=== PATIENT | male | born 1980 | race Caucasian/White ===

== ENCOUNTER 2017-02-03 17:50 | Emergency (ER) | payer MEDICAID ==
--- NOTE | 2017-02-03 18:20 | EDPHY ---
H & P Stated Complaint: SI/MISSED APT AT [facility] DOESN'T HAVE MEDS Time Seen by Provider: 02/03/17 18:20 HPI/ROS: HPI: This is a 36-year-old male presents with Chief Complaint: Wanting to Location: psych Quality: Wants to Duration: Today Signs and Symptoms: No cough, no fever, no chest pain, no shortness of breath, no abdominal pain, no suicidal ideation, no homicidal ideation, no hallucinations Timing: Worse over the last few days Severity: Moderate Context: Patient reports that he has a history of depression and anxiety for which he takes Klonopin and Lexapro. He reports that he is out of these medications today. [facility] as he is tired of living on the streets for the last 6 years and not having a shower in over 1 year. He reports that he is severely depressed, keeps having bad thoughts of wanting to end his life but does not have a plan. He is very tearful and states that life is not worth living anymore. He does not have a family or friend support system. He does smoke marijuana but denies other recreational drug use. Although he does admit that at the [facility] 2 days ago he tested positive for methamphetamine. He does not remember if he has ever had inpatient psychiatric admission. He denies PTSD/schizophrenia. Modifying Factors: None Comment: ROS: see HPI Constitutional: No fever, no chills, no weight loss Eyes: No blurred vision Respiratory: No shortness of breath, no cough Cardiovascular: No chest pain Gastrointestinal: No nausea, no vomiting, no diarrhea Genitourinary: No dysuria Extremities: No myalgias Neurologic: No weakness, no numbness Skin: No rashes Hematologic: No bruising, no bleeding MEDICAL/SURGICAL/SOCIAL HISTORY: Medical history: Depression, anxiety Surgical history: Denies Social history: Homeless CONSTITUTIONAL: Malodorous adult white male, who constantly rubs his head and picks at his skin, awake and alert, no obvious distress HEENT: Atraumatic and normocephalic, PERRL, EOMI. Tympanic membranes clear. Oropharynx clear, no exudate and moist pink mucosa. Airway patent. No lymphadenopathy. No meningismus. Cardiovascular: Normal S1/S2, regular rate, regular rhythm, without murmur rub or gallop. PULMONARY/CHEST: Symmetrical and nontender. Clear to auscultation bilaterally. Good air movement. No accessory muscle usage. ABDOMEN: Soft, nondistended, nontender, no rebound, no guarding, no peritoneal signs, no masses or organomegaly. No CVAT. EXTREMITIES: 2/2 pulses, strength 5/5, no deformities, no clubbing, no cyanosis or edema. NEUROLOGICAL: no focal neuro deficits. GCS 15. SKIN: Warm and dry, covered in tattoos on torso, scalp, neck and arms. no erythema. no rash. Good capillary refill. PSYCH: Poor eye contact, no flight of ideas, somewhat disorganized thought process, poor insight and judgment, no auditory and visual command hallucinations, positive suicidal ideation but no plan, no homicidal ideation, no paranoia Source: Patient, RN/MD Exam Limitations: No limitations - Personal History Current Tetanus/Diphtheria Vaccine: Unsure - Medical/Surgical History Hx Asthma: No Hx Chronic Respiratory Disease: No Hx Diabetes: No Hx Cardiac Disease: No Hx Renal Disease: No Hx Cirrhosis: No Hx Alcoholism: No Hx HIV/AIDS: No Hx Splenectomy or Spleen Trauma: No Other PMH: PMH: ANXIETY,DEPRESSION. DENIES PSH - Social History Smoking Status: Heavy smoker Constitutional: Initial Vital Signs Temperature (C) 36.5 C 02/03/17 17:54 Heart Rate 93 02/03/17 17:54 Respiratory Rate 16 02/03/17 17:54 Blood Pressure 138/89 H 02/03/17 17:54 O2 Sat (%) 99 02/03/17 17:54 O2 Delivery Mode Room Air Allergies/Adverse Reactions: haloperidol [From Haldol] Allergy (Verified 02/03/17 17:54) haloperidol lactate [From Haldol] Allergy (Verified 02/03/17 17:54) Home Medications: Medication Instructions Recorded Klonopin Unk Dose 09/13/13 Escitalopram Oxalate [Lexapro] 20 mg PO DAILY 14 Days tablet 10/16/15 Lexapro 10/16/15 clonazePAM [Klonopin (*)] 0.5 mg PO BID #20 tab 10/16/15 Medical Decision Making ED Course/Re-evaluation: Labs, UDS ordered 1814: M1 placed for suicidal ideations Patient was extremely anxious and asked for something to calm down. P.o. Ativan 1 mg given 1910: Labs in UDS reviewed and medically clear for mental health evaluation 2015: Advised by mental health that patient tested around 1400 positive for methamphetamine and will not re-evaluate patient until Friday at 0200 End of Shift. Signed out to Dr. Church pending mental health evaluation. Re- evaluated patient and he is sleeping calmly. Differential Diagnosis: Differential diagnosis includes but is not limited to severe major depression, suicidal ideation, psychosocial stressful factors. - Data Points Laboratory Results: Laboratory Results 02/03/17 18:11 02/03/17 18:11 02/03/17 02/03/17 02/03/17 18:23 18:11 18:11 WBC 10.03 10^3/uL H 10^3/uL (3.80-9.50) RBC 5.14 10^6/uL 10^6/uL (4.40-6.38) Hgb 15.6 g/dL g/dL (13.7-17.5) Hct 45.9 % % (40.0-51.0) MCV 89.3 fL fL (81.5-99.8) MCH 30.4 pg pg (27.9-34.1) MCHC 34.0 g/dL g/dL (32.4-36.7) RDW 12.3 % % (11.5-15.2) Plt Count 342 10^3/uL 10^3/uL (150-400) MPV 9.5 fL fL (8.7-11.7) Neut % (Auto) 46.9 % % (39.3-74.2) Lymph % (Auto) 42.2 % % (15.0-45.0) [place] % (Auto) 6.0 % % (4.5-13.0) Eos % (Auto) 3.9 % % (0.6-7.6) Baso % (Auto) 0.8 % % (0.3-1.7) Nucleat RBC Rel Count 0.0 % % (0.0-0.2) Absolute Neuts (auto) 4.71 10^3/uL 10^3/uL (1.70-6.50) Absolute Lymphs (auto) 4.23 10^3/uL H 10^3/uL (1.00-3.00) Absolute Monos (auto) 0.60 10^3/uL 10^3/uL (0.30-0.80) Absolute Eos (auto) 0.39 10^3/uL 10^3/uL (0.03-0.40) Absolute Basos (auto) 0.08 10^3/uL 10^3/uL (0.02-0.10) Absolute Nucleated RBC 0.00 10^3/uL 10^3/uL (0-0.01) Immature Gran % 0.2 % % (0.0-1.1) Immature Gran # 0.02 10^3/uL 10^3/uL (0.00-0.10) Sodium 140 mEq/L mEq/L (134-144) Potassium 4.4 mEq/L mEq/L (3.5-5.2) Chloride 99 mEq/L mEq/L (97-110) Carbon Dioxide 28 mEq/l mEq/l (22-31) Anion Gap 13 mEq/L mEq/L (8-16) BUN 14 mg/dL mg/dL (7-23) Creatinine 0.9 mg/dL mg/dL (0.7-1.3) Estimated GFR > 60 Glucose 89 mg/dL mg/dL (70-100) Calcium 9.4 mg/dL mg/dL (8.5-10.4) Urine Opiates Screen NEGATIVE (NEGATIVE) Urine Barbiturates NEGATIVE (NEGATIVE) Ur Phencyclidine Scrn NEGATIVE (NEGATIVE) Ur Amphetamine Screen NEGATIVE (NEGATIVE) U Benzodiazepines Scrn NEGATIVE (NEGATIVE) Urine Cocaine Screen NEGATIVE (NEGATIVE) U Marijuana (THC) Screen NEGATIVE (NEGATIVE) Ethyl Alcohol < 10 mg/dL mg/dL (0-10) Medications Given: Discontinued Medications Ibuprofen (Motrin) 600 mg PO EDNOW ONE Stop: 02/03/17 19:52 Last Admin: 02/03/17 20:07 Dose: 600 mg Lorazepam (Ativan) 1 mg PO EDNOW ONE Stop: 02/03/17 18:42 Last Admin: 02/03/17 18:44 Dose: 1 mg Departure - Departure Clinical Impression: Suicidal ideations, Severe major depression without psychotic features, Generalized anxiety disorder Referrals: NONE *PRIMARY CARE P,. [Primary Care Provider] - As per Instructions
[2017-02-03 18:31] LABS: PLATELET COUNT 342 10^3/uL (150-400)
[2017-02-03] MEDS ORDERED: LORazepam 1 MG TAB PO ONE (18:41)
[2017-02-03] MEDS ORDERED: IBUPROFEN 600 MG TAB PO ONE (19:51)
[2017-02-04] MEDS ORDERED: LORazepam 1 MG TAB PO ONE (08:01)
[2017-02-04 08:19] VITALS: BP 133/86; PULSE 73; RESP 16; TEMP 98.2; O2SAT 94
== END 2017-02-04 08:58 | disposition home or self-care (01) ==
LOC: EEVIPCON 17:50
DX: R45.851 Suicidal ideations (principal); F32.2 Major depressive disorder, single episode, severe without psychotic features; F41.9 Anxiety disorder, unspecified; F17.200 Nicotine dependence, unspecified, uncomplicated
CPT/HCPCS: 80305; G0480

== ENCOUNTER 2017-02-05 11:13 | Emergency (ER) | payer MEDICAID ==
[2017-02-05 11:17] VITALS: RESP 20; O2SAT 97
--- NOTE | 2017-02-05 11:31 | EDPHY ---
H & P Stated Complaint: out of klonopin, not feeling well, SI Time Seen by Provider: 02/05/17 11:31 HPI/ROS: HPI: This is a 36-year-old male presents with Chief Complaint: Out of clonazepam Location: psych Quality: Out of clonazepam Duration: 2 days Signs and Symptoms: No cough, no fever, no chest pain, no shortness of breath, no abdominal pain, no suicidal ideation, no homicidal ideation, no hallucinations Timing: Worse over the last few days Severity: Moderate Context: Patient reports that he has a history of depression and anxiety for which he takes Klonopin and Lexapro. He reports that he is out of his Klonopin approximately 2-3 days. Patient is known to me as he was was evaluated in this ER 2 days ago for passive suicidal ideations that he was evaluated by psych and it was determined that he was safe to be discharged home with outpatient behavioral health follow-up. Patient denies actually wanting to harm himself and does not have a plan. He just feels really anxious with his thoughts racing as he has not had his Klonopin 0.5 mg twice daily in the last 2-3 days. Patient has an appointment in March with his psychiatrist. And he is due for Klonopin refill in 2 days. Modifying Factors: None ROS: see HPI Constitutional: No fever, no chills, no weight loss Eyes: No blurred vision Respiratory: No shortness of breath, no cough Cardiovascular: No chest pain Gastrointestinal: No nausea, no vomiting, no diarrhea Genitourinary: No dysuria Extremities: No myalgias Neurologic: No weakness, no numbness Skin: No rashes Hematologic: No bruising, no bleeding MEDICAL/SURGICAL/SOCIAL HISTORY: Medical history: Generally healthy. Does not take any regular medications. Surgical history: Denies Social history: Homeless CONSTITUTIONAL: Malodorous with body odor, nontoxic-appearing white male, awake and alert, no obvious distress HEENT: Atraumatic and normocephalic, PERRL, EOMI. Tympanic membranes clear. Oropharynx clear, no exudate and moist pink mucosa. Airway patent. No lymphadenopathy. No meningismus. Cardiovascular: Normal S1/S2, mild tachycardia, regular rhythm, without murmur rub or gallop. PULMONARY/CHEST: Symmetrical and nontender. Clear to auscultation bilaterally. Good air movement. No accessory muscle usage. ABDOMEN: Soft, nondistended, nontender, no rebound, no guarding, no peritoneal signs, no masses or organomegaly. No CVAT. EXTREMITIES: 2/2 pulses, strength 5/5, no deformities, no clubbing, no cyanosis or edema. NEUROLOGICAL: no focal neuro deficits. GCS 15. SKIN: Warm and dry, covered in tattoos, no erythema. no rash. Good capillary refill. PSYCH: Poor eye contact, no flight of ideas, someone disorganized thought process, relatively good insight and judgment, no auditory and visual command hallucinations, no suicidal ideation with a plan, no homicidal ideation, no paranoid Source: Patient Exam Limitations: No limitations - Personal History Current Tetanus/Diphtheria Vaccine: Unsure Current Tetanus Diphtheria and Acellular Pertussis (TDAP): Unsure - Medical/Surgical History Hx Asthma: No Hx Chronic Respiratory Disease: No Hx Diabetes: No Hx Cardiac Disease: No Hx Renal Disease: No Hx Cirrhosis: No Hx Alcoholism: No Hx HIV/AIDS: No Hx Splenectomy or Spleen Trauma: No Other PMH: PMH: ANXIETY,DEPRESSION. DENIES PSH - Social History Smoking Status: Heavy smoker Constitutional: Initial Vital Signs Temperature (C) 36.8 C 02/05/17 11:15 Heart Rate 107 H 02/05/17 11:15 Respiratory Rate 20 02/05/17 11:15 Blood Pressure 138/109 H 02/05/17 11:15 O2 Sat (%) 97 02/05/17 11:15 O2 Delivery Mode Room Air Allergies/Adverse Reactions: haloperidol [From Haldol] Allergy (Verified 02/05/17 11:14) haloperidol lactate [From Haldol] Allergy (Verified 02/05/17 11:14) Home Medications: Medication Instructions Recorded Klonopin Unk Dose 09/13/13 Escitalopram Oxalate [Lexapro] 20 mg PO DAILY 14 Days tablet 10/16/15 Lexapro 10/16/15 clonazePAM [Klonopin (*)] 0.5 mg PO BID #20 tab 10/16/15 clonazePAM [Klonopin (*)] 0.5 mg PO BID #4 tab 02/05/17 Medical Decision Making ED Course/Re-evaluation: Patient given Klonopin 1 mg He does not meet M1 criteria at this time as no SI, HI, psychosis, hallucinations. Reassessed patient at 1:24 p.m. and reports much more calm and no longer anxious. Reviewed labs and grossly unremarkable UDS is positive for benzodiazepines, marijuana Patient can fill his Klonopin prescription Ryley morning. Will give him #4 Tablets for the interim. Differential Diagnosis: Altered mental status including but not limited to hypoglycemia, infectious process, electrolyte abnormality, head injury and intoxicants. - Data Points Laboratory Results: Laboratory Results 02/05/17 11:30 02/05/17 11:02/05/17 02/05/17 02/05/17 11:30 11: 11:30 WBC 9.04 10^3/uL 10^3/uL (3.80-9.50) RBC 4.99 10^6/uL 10^6/uL (4.40-6.38) Hgb 15.5 g/dL g/dL (13.7-17.5) Hct 43.5 % % (40.0-51.0) MCV 87.2 fL fL (81.5-99.8) MCH 31.1 pg pg (27.9-34.1) MCHC 35.6 g/dL g/dL (32.4-36.7) RDW 12.2 % % (11.5-15.2) Plt Count 306 10^3/uL 10^3/uL (150-400) MPV 9.7 fL fL (8.7-11.7) Neut % (Auto) 53.5 % % (39.3-74.2) Lymph % (Auto) 38.2 % % (15.0-45.0) [place] % (Auto) 5.4 % % (4.5-13.0) Eos % (Auto) 1.9 % % (0.6-7.6) Baso % (Auto) 0.8 % % (0.3-1.7) Nucleat RBC Rel Count 0.0 % % (0.0-0.2) Absolute Neuts (auto) 4.84 10^3/uL 10^3/uL (1.70-6.50) Absolute Lymphs (auto) 3.45 10^3/uL H 10^3/uL (1.00-3.00) Absolute Monos (auto) 0.49 10^3/uL 10^3/uL (0.30-0.80) Absolute Eos (auto) 0.17 10^3/uL 10^3/uL (0.03-0.40) Absolute Basos (auto) 0.07 10^3/uL 10^3/uL (0.02-0.10) Absolute Nucleated RBC 0.00 10^3/uL 10^3/uL (0-0.01) Immature Gran % 0.2 % % (0.0-1.1) Immature Gran # 0.02 10^3/uL 10^3/uL (0.00-0.10) Sodium 140 mEq/L mEq/L (134-144) Potassium 4.1 mEq/L mEq/L (3.5-5.2) Chloride 102 mEq/L mEq/L (97-110) Carbon Dioxide 23 mEq/l mEq/l (22-31) Anion Gap 15 mEq/L mEq/L (8-16) BUN 12 mg/dL mg/dL (7-23) Creatinine 0.8 mg/dL mg/dL (0.7-1.3) Estimated GFR > 60 Glucose 136 mg/dL H mg/dL (70-100) Calcium 9.7 mg/dL mg/dL (8.5-10.4) Urine Opiates Screen NEGATIVE (NEGATIVE) Urine Barbiturates NEGATIVE (NEGATIVE) Ur Phencyclidine Scrn NEGATIVE (NEGATIVE) Ur Amphetamine Screen NEGATIVE (NEGATIVE) U Benzodiazepines Scrn NON-NEGATIVE H (NEGATIVE) Urine Cocaine Screen NEGATIVE (NEGATIVE) U Marijuana (THC) Screen NON-NEGATIVE H (NEGATIVE) Ethyl Alcohol < 10 mg/dL mg/dL (0-10) Medications Given: Discontinued Medications Clonazepam (Klonopin) 1 mg PO EDNOW ONE Stop: 02/05/17 11:51 Last Admin: 02/05/17 12:07 Dose: 1 mg Departure - Departure Disposition: Home, Routine, Self-Care Clinical Impression: Has run out of medications Anxiety disorder Qualifiers: Anxiety disorder type: generalized anxiety disorder Qualified Code(s): F41.1 - Generalized anxiety disorder Condition: Good Instructions: Generalized Anxiety Disorder (ED) Referrals: [facility],. [Clinic] - As per Instructions Prescriptions: clonazePAM [Klonopin (*)] 0.5 mg PO BID #4 tab
[2017-02-05] MEDS ORDERED: clonazePAM 1 MG TAB PO ONE (11:50)
[2017-02-05 11:51] LABS: % IMMATURE GRANULYOCYTES 0.2 % (0.0-1.1); ABSOLUTE IMMATURE GRANULOCYTES 0.02 10^3/uL (0.00-0.10); ADD DIFF? NO; ADD MORPH? NO; ADD SCAN? NO; ATYPICAL LYMPHOCYTE FLAG 10 (0-99); FRAGMENT RBC FLAG 0 (0-99); HEMATOCRIT 43.5 % (40.0-51.0); HEMOGLOBIN 15.5 g/dL (13.7-17.5); LEFT SHIFT FLG 0 (0-99); LIPEMIA HEMOLYSIS FLAG 90 (0-99); MEAN CELL HEMOGLOBIN 31.1 pg (27.9-34.1); MEAN CELL HEMOGLOBIN CONCENTR. 35.6 g/dL (32.4-36.7); MEAN CELL VOLUME 87.2 fL (81.5-99.8); MEAN PLATELET VOLUME 9.7 fL (8.7-11.7); PLATELET CLUMPS FLAG 10 (0-99); PLATELET COUNT 306 10^3/uL (150-400); RED BLOOD CELL COUNT 4.99 10^6/uL (4.40-6.38); RED CELL DISTRIBUTION WIDTH 12.2 % (11.5-15.2)
[2017-02-05 12:07] LABS: ANION GAP 15 mEq/L (8-16); CALCIUM 9.7 mg/dL (8.5-10.4); CARBON DIOXIDE 23 mEq/l (22-31); CHLORIDE 102 mEq/L (97-110); CREATININE 0.8 mg/dL (0.7-1.3); ETHANOL SERUM < 10 mg/dL (0-10); GLOMERULAR FILTRATION RATE > 60; GLUCOSE 136 mg/dL (70-100); POTASSIUM 4.1 mEq/L (3.5-5.2); SODIUM 140 mEq/L (134-144)
[2017-02-05 13:45] VITALS: BP 155/74; PULSE 88; TEMP 98.4
== END 2017-02-05 13:45 | disposition home or self-care (01) ==
DX: F41.1 Generalized anxiety disorder (principal); F17.200 Nicotine dependence, unspecified, uncomplicated
CPT/HCPCS: 80305; G0480

== ENCOUNTER 2017-03-26 11:16 | Emergency (ER) | payer MEDICAID ==
[2017-03-26 11:47] LABS: PLATELET COUNT 351 10^3/uL (150-400)
--- NOTE | 2017-03-26 16:42 | EDPHY ---
H & P Stated Complaint: SI - Personal History Current Tetanus/Diphtheria Vaccine: Unsure Current Tetanus Diphtheria and Acellular Pertussis (TDAP): Unsure - Medical/Surgical History Hx Asthma: No Hx Chronic Respiratory Disease: No Hx Diabetes: No Hx Cardiac Disease: No Hx Renal Disease: No Hx Cirrhosis: No Hx Alcoholism: No Hx HIV/AIDS: No Hx Splenectomy or Spleen Trauma: No Other PMH: PMH: ANXIETY,DEPRESSION, meth use. DENIES PSH - Social History Smoking Status: Heavy smoker HPI/ROS: Chief complaint: Suicidal ideation History of present illness: This is a 36-year-old male who presents to the emergency department for suicidal ideation. Patient with a history of depression. It is been worsening lately. He states he has been thinking of killing himself. He tells me "I do not want to live anymore." He denies homicidal ideation. He denies illness or injury. Review of systems: A 10 point review of systems was obtained and other than described above was negative (Jameson Candelario) Patient signed over to Dr. Marino at 7am (Leo Church) - Physical Exam Exam: General Appearance: Alert, crying. Eyes: Pupils equal and round no pallor or injection. ENT, Mouth: Mucous membranes moist. Respiratory: There are no retractions, lungs are clear to auscultation. Cardiovascular: Regular rate and rhythm. Gastrointestinal: Abdomen is soft and non tender, no masses, bowel sounds normal. Neurological: Alert and oriented x4. Strength and sensation intact and symmetric. Skin: Warm and dry, no rashes. Musculoskeletal: Neck is supple non tender. Extremities are symmetrical, full range of motion. Psychiatric: Patient is sad, crying. No agitation. (Jameson Candelario) Constitutional: Initial Vital Signs Temperature (C) 36.8 C 03/26/17 11:23 Heart Rate 89 03/26/17 11:23 Respiratory Rate 16 03/26/17 11:23 Blood Pressure 143/93 H 03/26/17 11:23 O2 Sat (%) 97 03/26/17 11:23 O2 Delivery Mode Room Air Allergies/Adverse Reactions: haloperidol [From Haldol] Allergy (Verified 03/26/17 11:21) haloperidol lactate [From Haldol] Allergy (Verified 03/26/17 11:21) Home Medications: Medication Instructions Recorded Lexapro 10/16/15 clonazePAM [Klonopin (*)] 0.5 mg PO BID #20 tab 10/16/15 Medical Decision Making ED Course/Re-evaluation: Patient seen under the supervision of my secondary supervising physician Dr. Marc Angel. Patient presents to the emergency department with suicidal ideation. He is medically evaluated and cleared for psychiatric evaluation. The psychiatric team has seen him and are working on an acute stabilization crisis unit placement. Care of patient turned over to Dr. Francis Puentes at end of shift. (Jameson Candelario) Patient remained stable on my shift. Care was turned over to Dr. Church. ( Francis Puentes) Differential Diagnosis: Included but not limited to substance abuse, anxiety, depression, bipolar (Jameson Candelario) Other Provider: 10:20 a.m. accepted at [facility] in [place] at [facility] [address] Mccollum. ( Santino Marino) - Data Points Laboratory Results: Laboratory Results 03/26/17 11:41 03/26/17 11:35 Medications Given: Discontinued Medications Clonazepam (Klonopin) 1 mg PO EDNOW ONE Stop: 03/26/17 16:59 Last Admin: 03/26/17 17:06 Dose: 1 mg Clonazepam (Klonopin) 1 mg PO EDNOW ONE Stop: 03/27/17 07:10 Last Admin: 03/27/17 07:43 Dose: 1 mg Escitalopram Oxalate (Lexapro) 30 mg PO EDNOW ONE Stop: 03/26/17 16:57 Last Admin: 03/26/17 17:06 Dose: 30 mg Escitalopram Oxalate (Lexapro) 30 mg PO EDNOW ONE Stop: 03/27/17 07:09 Last Admin: 03/27/17 08:04 Dose: 30 mg Departure - Departure Disposition: Other Psych, Not [place] Clinical Impression: Suicidal ideation Condition: Fair Referrals: NONE *PRIMARY CARE P,. [Primary Care Provider] - As per Instructions
[2017-03-26] MEDS ORDERED: ESCITALOPRAM OXALATE 10 MG TAB PO ONE (16:56)
[2017-03-26] MEDS ORDERED: clonazePAM 1 MG TAB PO ONE (16:58)
[2017-03-27] MEDS ORDERED: ESCITALOPRAM OXALATE 10 MG TAB PO ONE (07:08)
[2017-03-27] MEDS ORDERED: clonazePAM 1 MG TAB PO ONE (07:09)
[2017-03-27 12:10] VITALS: BP 124/67; PULSE 71; RESP 18; TEMP 97.7; O2SAT 95
== END 2017-03-27 12:10 ==
DX: R45.851 Suicidal ideations (principal); F17.200 Nicotine dependence, unspecified, uncomplicated
CPT/HCPCS: 80305; G0480

== ENCOUNTER 2017-04-10 11:35 | Emergency (ER) | payer MEDICAID ==
[2017-04-10 11:41] VITALS: TEMP 97.9
--- NOTE | 2017-04-10 12:34 | EDPHY ---
H & P Time Seen by Provider: 04/10/17 12:21 HPI/ROS: Chief complaint. Wants a mental health appointment HPI. 36-year-old male with history of anxiety depression and meth use and was seen 1 week ago for suicide ideation. He was admitted to a crisis stabilization unit. They changed his antidepressant. He had an appointment for follow up with mental health but was arrested for sleeping outside and spent the last 2 nights in [facility] and missed his appointment. He denies suicide and homicide ideation. Denies recent drug use as he has been in [facility] last 2 days. ROS Constitutional. no fever/chills, no weakness Eyes. no problems with vision ENT. no sore throat, no nasal drainage Cardiovascular. no chest pain Respiratory. no shortness of breath, no cough Abdominal. no abdominal pain, no nausea/vomiting, no diarrhea . no problems urinating MS. no calf pain/swelling, no neck/back pain, no joint pain Skin. no rash Lymph. no swollen glands Neuro. Depression Past Medical/Surgical History: Anxiety, depression, meth use Social History: Single, daily smoker, no alcohol Smoking Status: Heavy smoker Physical Exam: General Appearance: Alert well-developed male slightly disorganized but otherwise no distress. Vital signs are stable Eyes: Pupils equal and round no pallor or injection. ENT, Mouth: Mucous membranes are moist. Respiratory: There are no retractions, lungs are clear to auscultation. Cardiovascular: Regular rate and rhythm. Gastrointestinal: Abdomen is soft and nontender, no masses, bowel sounds normal. Neurological: Awake and alert, sensory and motor exams grossly normal. Skin: Warm and dry, no rashes. Musculoskeletal: Neck is supple nontender. Extremities symmetrical, full range of motion. Psychiatric: Patient is oriented X 3, there is no agitation. Constitutional: Initial Vital Signs Temperature (C) 36.6 C 04/10/17 11:39 Heart Rate 92 04/10/17 11:39 Respiratory Rate 17 04/10/17 11:39 Blood Pressure 129/96 H 04/10/17 11:39 O2 Sat (%) 96 04/10/17 11:39 O2 Delivery Mode Room Air Allergies/Adverse Reactions: haloperidol [From Haldol] Allergy (Verified 04/10/17 11:38) haloperidol lactate [From Haldol] Allergy (Verified 04/10/17 11:38) Home Medications: Medication Instructions Recorded Lexapro 07/18/16 clonazePAM [Klonopin (*)] 0.5 mg PO BID #20 tab 10/16/15 Medical Decision Making ED Course/Re-evaluation: Re-evaluation 2:30 p.m.. Patient is stable. He has talked with mental health and has a follow-up appointment. He is comfortable with this. He does not wish to stay any longer in the emergency department. He continues to deny suicidal or homicidal ideation Differential Diagnosis: The patient has ongoing mental health issues. He missed his follow-up appointment with mental health after being arrested and spending 2 nights in [facility]. He was here for requesting a mental health follow-up appointment. This has been performed. He is safe for discharge Departure - Departure Disposition: Home, Routine, Self-Care Clinical Impression: Severe major depression Condition: Good Instructions: Depression (ED) Additional Instructions: Continue regular medications. Keep follow-up appointment with mental health. Return for thoughts of harming herself or others. Referrals: NONE *PRIMARY CARE P,. [Primary Care Provider] - As per Instructions [facility] [Outside] - As per Instructions
[2017-04-10 14:46] VITALS: BP 158/92; PULSE 87; RESP 16; O2SAT 95
== END 2017-04-10 14:45 | disposition home or self-care (01) ==
DX: F32.9 Major depressive disorder, single episode, unspecified (principal); F17.200 Nicotine dependence, unspecified, uncomplicated

== ENCOUNTER 2018-05-06 09:11 | Emergency (ER) | payer MEDICAID ==
[2018-05-06 09:16] VITALS: BP 148/92
--- NOTE | 2018-05-06 09:29 | EDPHY ---
H & P Stated Complaint: lost his clonazepam Time Seen by Provider: 05/06/18 09:26 HPI/ROS: HPI: This is a 37-year-old male who presents with Chief Complaint: Lost his Klonopin Location: psych Quality: Lost his Klonopin Duration: 1 week Signs and Symptoms: no auditory hallucinations, no visual hallucinations, no suicidal ideation with a plan, no homicidal ideation, no paranoia Timing: Acute on chronic Severity: Mild Context: Patient has a history of anxiety, depression, followed by Dr. Patel, at [facility] presents with request of refill of his Klonopin as he has "lost it and hasn't had it for 1 week." Patient reports that he feels jittery and anxious. He reports that he called the nurse but they will "not talk to me." He has an appointment on the with [facility] to get his medications filled. Denies suicidal ideation, homicidal ideation. Modifying Factors: None Comment: ROS: A comprehensive 10 system review of systems is otherwise negative aside from elements mentioned in the history of present illness. MEDICAL/SURGICAL/SOCIAL HISTORY: Medical history: ANXIETY,DEPRESSION, meth use Surgical history: Denies Social history: Homeless. Family history noncontributory. CONSTITUTIONAL: Untidy, tearful, adult white male, awake and alert, no obvious distress HEENT: Atraumatic and normocephalic, PERRL, EOMI. Nares patent; no rhinorrhea; no nasal mucosal edema. Tympanic membranes clear. Oropharynx clear, no exudate and moist pink mucosa. Airway patent. No lymphadenopathy. No meningismus. Cardiovascular: Normal S1/S2, mild tachycardia, regular rhythm, without murmur rub or gallop. PULMONARY/CHEST: Symmetrical and nontender. Clear to auscultation bilaterally. Good air movement. No accessory muscle usage. ABDOMEN: Soft, nondistended, nontender, no rebound, no guarding, no peritoneal signs, no masses or organomegaly. No CVAT. EXTREMITIES: 2/2 pulses, strength 5/5, no deformities, no clubbing, no cyanosis or edema. NEUROLOGICAL: no focal neuro deficits. GCS 15. SKIN: Warm and dry, scattered and tattoos, no erythema. no rash. Good capillary refill. PSYCH: Fair eye contact, no flight of ideas, organized thought process, fair insight and judgment, no auditory hallucinations, no visual hallucinations, no suicidal ideation with a plan, no homicidal ideation, no paranoia Source: Patient, RN/MD, Old records Exam Limitations: No limitations - Personal History Current Tetanus Diphtheria and Acellular Pertussis (TDAP): Unsure - Medical/Surgical History Hx Asthma: No Hx Chronic Respiratory Disease: No Hx Diabetes: No Hx Cardiac Disease: No Hx Renal Disease: No Hx Cirrhosis: No Hx Alcoholism: No Hx HIV/AIDS: No Hx Splenectomy or Spleen Trauma: No Other PMH: PMH: ANXIETY,DEPRESSION, meth use. DENIES PSH - Social History Smoking Status: Heavy smoker Constitutional: Initial Vital Signs Temperature (C) 36.6 C 05/06/18 09:13 Heart Rate 100 05/06/18 09:13 Respiratory Rate 17 05/06/18 09:13 Blood Pressure 148/92 H 05/06/18 09:13 O2 Sat (%) 95 05/06/18 09:13 O2 Delivery Mode Room Air Allergies/Adverse Reactions: haloperidol [From Haldol] Allergy (Verified 05/06/18 09:12) haloperidol lactate [From Haldol] Allergy (Verified 05/06/18 09:12) Home Medications: Medication Instructions Recorded Lexapro 10/16/15 clonazePAM [Klonopin (*)] 0.5 mg PO BID #20 tab 10/16/15 Medical Decision Making ED Course/Re-evaluation: Vital signs reviewed and show mild tachycardia. No signs of benzodiazepine withdrawal. Does not meet M1 hold or MIH criteria. I advised the patient that we will not fill chronic psychiatric medications including benzodiazepines in the emergency room especially since he is followed outpatient by [facility]. Case management consult with Jayashree advised that she called [facility] and they report that patient can call the office today and to speak with Dr. Patel's nurse to rectify the situation. This patient was seen under the supervision of my secondary supervising physician. I evaluated care for this patient with attending. Discussed this patient with Dr. Grider. Differential Diagnosis: Differential diagnosis includes but is not limited to major depression, anxiety disorder, schizophrenia, bipolar disorder, intoxicant use, suicidal ideation, psychosis, romana. Departure - Departure Disposition: Home, Routine, Self-Care Clinical Impression: Anxiety with depression, Has run out of medications Condition: Good Instructions: Clonazepam (By mouth), Generalized Anxiety Disorder (ED) Additional Instructions: Please call your pharmacy and ask for a refill. Please call [facility] and ask for Dr. Patel's nurse to discuss your current situation. Referrals: [facility],. [Clinic] - As per Instructions
--- NOTE | 2018-05-06 11:00 | ASMTCMCOM ---
CM Note CM Note Notes: Patient presents to the ED for medication refill request. Patient states that he takes Klonopin which is prescribed by Dr. Dolan at [facility] at [facility]. This CM met with patient in triage and patient was not brought back to the ED. Patient states that he lost his medication and that his next appointment with Dr. Dolan is not until May 18. Patient has not contacted his phamacy for a refill request and tells me that he has tried calling the clinic but they "won't talk to him". This CM contacted Laci at [facility] to inform of patient's presentation to the ED for medication. Laci states that patient should call the clinic directly and request to speak to Dr. Dolan's RN. I have informed patient of above and provided him with with the correct phone number for the clinic. I have also encouraged patient to call his pharmacy ([facility]) directly to request a refill. Patient is tearful and states " I do not feel right without my medication". I offered transportation to patient to go to the [facility] crisis center to speak with a counselor but patient declines. I have explained to patient that the ED is not a prescriber and that he shouls always contact his provider or pharmacy directly if he runs out of medication. Patient is homeless and denies follow through with the coordinated entry process. I have encouraged him to pursue this in an attempt to gain stability and potential housing options. CM available for further needs prn Date Signed: 05/06/2018 10:59 AM Electronically Signed By:Jayashree Bennett RN
== END 2018-05-06 09:39 | disposition home or self-care (01) ==
DX: Z76.0 Encounter for issue of repeat prescription (principal); F41.8 Other specified anxiety disorders; F15.10 Other stimulant abuse, uncomplicated; Z59.0 Homelessness